=== PATIENT | female | born 1955 | race Caucasian/White ===

== ENCOUNTER → 2020-06-26 | Day surgery (SDC) | payer BC ==
[2020-06-22 13:43] VITALS: BMI 16.5
[~2020-06-26] MED LIST: Albuterol Sulfate 2.5 mg/3 ml Neb ONE; Lidocaine 1% MPF 2 ML VIAL ONE; Lidocaine 4% PF 5 ML AMP ONE; Midazolam HCl 2 mg/2 ml Vial ONE; Sodium Chloride For Inhalation 0.9% 3 ML NEB ONE
== END | disposition home or self-care (01) ==
LOC: CSHSDC 06:00
PROVIDERS: ATTEND Internal Medicine Gastroenterology
PROC: 0DJ08ZZ Inspection of Upper Intestinal Tract, Via Natural or Artificial Opening Endoscopic (ICD-10-PCS; principal; 2020-06-26)
DX: K22.2 Esophageal obstruction (principal); C02.9 Malignant neoplasm of tongue, unspecified
CPT/HCPCS: J2250; J7611